=== PATIENT | male | born 1970 | race Caucasian/White ===

== ENCOUNTER → 2016-05-10 | Outpatient (CLI) | payer OTHER ==
[~2016-05-10] MED LIST: ACULAR 3 ML3 M1 OP; METOPROLOL SUCC50 M2 PO; NORVASC5 MG PO; Synthroid,Lev150 MCG PO; ZESTRIL40 MG PO
== END | disposition home or self-care (01) ==
LOC: CT 06:20
DX: D44.10 Neoplasm of uncertain behavior of unspecified adrenal gland (principal); R91.1 Solitary pulmonary nodule; N20.0 Calculus of kidney

== ENCOUNTER → 2019-01-29 | Outpatient (CLI) | payer OTHER | END | disposition home or self-care (01) | LOC: CT 01-21 11:00 | DX: R91.1 Solitary pulmonary nodule (principal) ==

== ENCOUNTER → 2019-12-11 | Outpatient (CLI) | payer OTHER ==
[2019-12-11 11:33] LABS: BASO # 0.1 10*3/uL (0.0-0.1); BASO % 0.7 % (0.0-1.0); EOS # 0.3 10*3/uL (0.0-0.4); EOS % 3.4 % (1.0-4.0); LYMPH # 2.3 10*3/uL (1.3-4.4); LYMPH % 29.3 % (27.0-41.0); MEAN CELL VOLUME 88.5 fl (80.0-94.0); MEAN CORPUSCULAR HGB 29.6 pg (27.0-31.0); MEAN CORPUSCULAR HGB CONC 33.4 g/dl (33.0-37.0); MEAN PLATELET VOLUME 10.2 fl (9.6-12.3); MONO # 0.6 10*3/uL (0.1-1.0); MONO % 7.8 % (3.0-9.0); NEUT # 4.5 10*3/uL (2.3-7.9); NEUT % 58.5 % (47.0-73.0); PLATELET COUNT AUTOMATED 248 10*3/uL (130-400); RED BLOOD COUNT 5.31 10*6/uL (4.50-5.90); RED CELL DISTRI WIDTH 12.4 % (0-14.5); RETICULOCYTE % 1.18 % (0.50-2.50); WHITE BLOOD COUNT 7.7 10*3/uL (4.8-10.8)
[2019-12-11 11:43] LABS: BILIRUBIN Negative (Negative); BLOOD Negative (Negative); CLARITY Clear (Clear); COLOR Yellow (Yellow); GLUCOSE Negative (Negative); KETONE Negative (Negative); LEUKO ESTERASE Negative (Negative); NITRITE Negative (Negative); UROBILINOGEN 0.2 E.U./dl (0.0-1.0)
[2019-12-11 11:51] LABS: BACTERIA TRACE; EPITHELIAL CELLS 0-2; WBC 0-2 wbc/hpf (0-5)
[2019-12-11 11:58] LABS: ALKALINE PHOSPHATASE 72 U/L (45-117); BUN 14 mg/dl (7-24); CHLORIDE 107 mmol/L (98-107); CHOLESTEROL 211 mg/dL (<200); CREATININE 0.81 mg/dL (0.70-1.30); GAMMA GLUTAMYL TRANSPEPTIDASE 15 U/L (15-85); HDL CHOLESTEROL 46 mg/dl (40-60); IRON 75 ug/dL (65-175); LDL CHOLESTEROL 144 mg/dL (9-159); POTASSIUM 4.5 mmol/L (3.5-5.1); SGOT/AST 19 IU/L (3-35); SGPT/ALT 30 U/L (12-78); SODIUM 140 mmol/L (136-145); T3 UPTAKE 30 % (31-39); THYROXINE (T4) TOTAL 11.2 ug/dl (4.5-12.1); TOTAL IRON BINDING CAPACITY 316 ug/dl (250-450); TOTAL PROTEIN 7.7 gm/dL (6.4-8.2); TRIGLYCERIDES 105 mg/dl (<150); VLDL CHOLESTEROL 21 mg/dL (6-40)
== END | disposition home or self-care (01) ==
LOC: LAB 10:57
PROVIDERS: ATTEND Family Medicine
DX: R79.89 Other specified abnormal findings of blood chemistry (principal); R53.83 Other fatigue; E78.5 Hyperlipidemia, unspecified; E55.9 Vitamin D deficiency, unspecified

== ENCOUNTER → 2020-08-11 | Outpatient (CLI) | payer OTHER ==
[2020-08-11 08:45] LABS: BASO % 0.7 % (0.0-1.0); EOS # 0.2 10*3/uL (0.0-0.4); EOS % 3.1 % (1.0-4.0); HEMATOCRIT 44.9 % (42.0-52.0); LYMPH # 2.1 10*3/uL (1.3-4.4); LYMPH % 33.4 % (27.0-41.0); MEAN CORPUSCULAR HGB 30.2 pg (27.0-31.0); MEAN CORPUSCULAR HGB CONC 34.3 g/dl (33.0-37.0); MEAN PLATELET VOLUME 10.6 fl (9.6-12.3); MONO # 0.7 10*3/uL (0.1-1.0); MONO % 11.7 % (3.0-9.0); NEUT # 3.1 10*3/uL (2.3-7.9); NEUT % 50.9 % (47.0-73.0); PLATELET COUNT AUTOMATED 220 10*3/uL (130-400); RED CELL DISTRI WIDTH 12.4 % (0-14.5); RETICULOCYTE % 0.95 % (0.50-2.50); WHITE BLOOD COUNT 6.1 10*3/uL (4.8-10.8)
[2020-08-11 08:46] LABS: BILIRUBIN Negative (Negative); BLOOD Negative (Negative); CLARITY Clear (Clear); COLOR Yellow (Yellow); GLUCOSE Negative (Negative); KETONE Negative (Negative); LEUKO ESTERASE Negative (Negative); NITRITE Negative (Negative); SPECIFIC GRAVITY <= 1.005 (1.001-1.030); UROBILINOGEN 0.2 E.U./dl (0.0-1.0)
[2020-08-11 09:00] LABS: EPITHELIAL CELLS 0-2; RBC 0-2 rbc/hpf (0-2)
[2020-08-11 09:14] LABS: ALBUMIN 3.8 gm/dl (3.1-4.5); ALKALINE PHOSPHATASE 72 U/L (45-117); BUN 16 mg/dl (7-24); CHLORIDE 106 mmol/L (98-107); CHOLESTEROL 211 mg/dL (<200); CREATININE 0.89 mg/dL (0.70-1.30); GAMMA GLUTAMYL TRANSPEPTIDASE 9 U/L (15-85); IRON 61 ug/dL (65-175); LDL CHOLESTEROL 144 mg/dL (9-159); POTASSIUM 4.4 mmol/L (3.5-5.1); SGOT/AST 16 IU/L (3-35); SGPT/ALT 27 U/L (12-78); SODIUM 138 mmol/L (136-145); T3 UPTAKE 33 % (31-39); TOTAL IRON BINDING CAPACITY 323 ug/dl (250-450); TOTAL PROTEIN 7.3 gm/dL (6.4-8.2); TRIGLYCERIDES 143 mg/dl (<150)
[2020-08-11 09:51] LABS: FERRITIN 154.1 ng/mL (22.0-322.0); VITAMIN D, 25-HYDROXY 18.2 ng/mL (30-100)
== END | disposition home or self-care (01) ==
LOC: LAB 02:36
PROVIDERS: ATTEND Family Medicine
DX: E78.5 Hyperlipidemia, unspecified (principal); B55.9 Leishmaniasis, unspecified; R53.83 Other fatigue; R79.89 Other specified abnormal findings of blood chemistry

== ENCOUNTER → 2021-03-01 | Outpatient (CLI) | payer OTHER ==
[2021-03-01 10:29] LABS: BASO # 0.1 10*3/uL (0.0-0.1); BASO % 1.2 % (0.0-1.0); EOS # 0.9 10*3/uL (0.0-0.4); EOS % 12.6 % (1.0-4.0); LYMPH # 1.8 10*3/uL (1.3-4.4); MEAN CELL VOLUME 89.5 fl (80.0-94.0); MEAN CORPUSCULAR HGB 30.4 pg (27.0-31.0); MEAN CORPUSCULAR HGB CONC 33.9 g/dl (33.0-37.0); MEAN PLATELET VOLUME 10.1 fl (9.6-12.3); MONO # 0.6 10*3/uL (0.1-1.0); MONO % 7.6 % (3.0-9.0); NEUT # 3.9 10*3/uL (2.3-7.9); NEUT % 53.2 % (47.0-73.0); PLATELET COUNT AUTOMATED 237 10*3/uL (130-400); RED BLOOD COUNT 5.14 10*6/uL (4.50-5.90); RED CELL DISTRI WIDTH 12.7 % (0-14.5); RETICULOCYTE % 1.32 % (0.50-2.50); WHITE BLOOD COUNT 7.4 10*3/uL (4.8-10.8)
[2021-03-01 10:37] LABS: BILIRUBIN Negative (Negative); BLOOD Negative (Negative); CLARITY Clear (Clear); COLOR Yellow (Yellow); GLUCOSE Negative (Negative); KETONE Negative (Negative); LEUKO ESTERASE Negative (Negative); NITRITE Negative (Negative); PH 5.5 (4.5-8.0); SPECIFIC GRAVITY 1.015 (1.001-1.030); UROBILINOGEN 0.2 E.U./dl (0.0-1.0)
[2021-03-01 10:47] LABS: ALBUMIN 3.7 gm/dl (3.1-4.5); BUN 13 mg/dl (7-24); CHLORIDE 107 mmol/L (98-107); CHOLESTEROL 210 mg/dL (<200); CREATININE 0.94 mg/dL (0.70-1.30); GAMMA GLUTAMYL TRANSPEPTIDASE 19 U/L (15-85); IRON 83 ug/dL (65-175); POTASSIUM 4.4 mmol/L (3.5-5.1); SGOT/AST 18 IU/L (3-35); SGPT/ALT 31 U/L (12-78); SODIUM 141 mmol/L (136-145); T3 UPTAKE 33 % (31-39); THYROXINE (T4) TOTAL 11.9 ug/dl (4.5-12.1); TOTAL IRON BINDING CAPACITY 313 ug/dl (250-450); TRIGLYCERIDES 121 mg/dl (<150)
[2021-03-01 10:56] LABS: ALKALINE PHOSPHATASE 72 U/L (45-117); LDL CHOLESTEROL 139 mg/dL (9-159)
[2021-03-01 10:59] LABS: MUCOUS 2+
[2021-03-01 11:01] LABS: WBC 0-2 wbc/hpf (0-5)
[2021-03-01 11:02] LABS: BACTERIA 2+; HYALINE CAST 0-2; RBC 0-2 rbc/hpf (0-2)
[2021-03-01 11:26] LABS: FERRITIN 144.6 ng/mL (22.0-322.0); VITAMIN D, 25-HYDROXY 25.7 ng/mL (30-100)
== END ==
LOC: LAB 01:12
PROVIDERS: ATTEND Family Medicine
DX: E55.9 Vitamin D deficiency, unspecified (principal); R79.89 Other specified abnormal findings of blood chemistry

== ENCOUNTER 2021-04-20 15:19 | Emergency (ER) | payer OTHER ==
[2021-04-20] MEDS ORDERED: TOBRAMYCIN 5 ML5 M2 OPH (16:49)
== END 2021-04-20 17:24 | disposition home or self-care (01) ==
LOC: ED 15:19
DX: T15.82XA Foreign body in other and multiple parts of external eye, left eye, initial encounter (principal); Z79.899 Other long term (current) drug therapy; X58.XXXA Exposure to other specified factors, initial encounter; Y93.89 Activity, other specified; Y92.89 Other specified places as the place of occurrence of the external cause; Y99.9 Unspecified external cause status

== ENCOUNTER → 2021-05-12 | Outpatient (CLI) | payer OTHER ==
[~2021-05-12] MED LIST changes: +COZAAR25 M1 PO; +NORVASC10 MG PO; +Synthroid,Lev125 MCG PO; +TOBRAMYCIN 5 ML5 M2 OPH
[2021-05-12 09:13] LABS: BASO # 0.1 10*3/uL (0.0-0.1); BASO % 1.2 % (0.0-1.0); BILIRUBIN Negative (Negative); BLOOD Trace-Intact (Negative); CLARITY Clear (Clear); COLOR Dark Yellow (Yellow); EOS # 0.6 10*3/uL (0.0-0.4); EOS % 6.8 % (1.0-4.0); GLUCOSE Negative (Negative); HEMATOCRIT 48.6 % (42.0-52.0); KETONE Trace (Negative); LEUKO ESTERASE Trace (Negative); LYMPH # 2.1 10*3/uL (1.3-4.4); LYMPH % 25.5 % (27.0-41.0); MEAN CELL VOLUME 87.7 fl (80.0-94.0); MEAN CORPUSCULAR HGB 30.1 pg (27.0-31.0); MEAN CORPUSCULAR HGB CONC 34.4 g/dl (33.0-37.0); MONO # 0.6 10*3/uL (0.1-1.0); MONO % 7.2 % (3.0-9.0); NEUT # 4.7 10*3/uL (2.3-7.9); NEUT % 58.9 % (47.0-73.0); NITRITE Negative (Negative); PH 5.5 (4.5-8.0); PLATELET COUNT AUTOMATED 263 10*3/uL (130-400); RED BLOOD COUNT 5.54 10*6/uL (4.50-5.90); RED CELL DISTRI WIDTH 12.3 % (0-14.5); RETICULOCYTE % 1.27 % (0.50-2.50)
[2021-05-12 09:21] LABS: EPITHELIAL CELLS 0-2; MUCOUS 4+
[2021-05-12 09:30] LABS: ALKALINE PHOSPHATASE 69 U/L (45-117); BUN 16 mg/dl (7-24); CHLORIDE 106 mmol/L (98-107); CHOLESTEROL 220 mg/dL (<200); CREATININE 0.95 mg/dL (0.70-1.30); GAMMA GLUTAMYL TRANSPEPTIDASE 13 U/L (15-85); IRON 97 ug/dL (65-175); LDL CHOLESTEROL 152 mg/dL (9-159); POTASSIUM 4.2 mmol/L (3.5-5.1); SGOT/AST 15 IU/L (3-35); SGPT/ALT 29 U/L (12-78); SODIUM 138 mmol/L (136-145); T3 UPTAKE 30 % (31-39); THYROXINE (T4) TOTAL 11.8 ug/dl (4.5-12.1); TOTAL IRON BINDING CAPACITY 322 ug/dl (250-450); TOTAL PROTEIN 7.6 gm/dL (6.4-8.2); TRIGLYCERIDES 145 mg/dl (<150)
[2021-05-12 10:43] LABS: FERRITIN 164.2 ng/mL (22.0-322.0); VITAMIN D, 25-HYDROXY 25.7 ng/mL (30-100)
== END | disposition home or self-care (01) ==
LOC: LAB 00:31 → CARD 00:31
PROVIDERS: Family Medicine; ATTEND Internal Medicine
DX: R79.89 Other specified abnormal findings of blood chemistry (principal); R53.83 Other fatigue; E55.9 Vitamin D deficiency, unspecified; E78.5 Hyperlipidemia, unspecified; R07.9 Chest pain, unspecified

== ENCOUNTER → 2021-05-22 | Outpatient (CLI) | payer OTHER | END | disposition home or self-care (01) | LOC: LAB 07:17 | PROVIDERS: ATTEND Internal Medicine | DX: I10 Essential (primary) hypertension (principal) ==

== ENCOUNTER → 2022-03-16 | Outpatient (CLI) | payer OTHER ==
[2022-03-16 08:27] LABS: BASO # 0.1 10*3/uL (0.0-0.1); BASO % 1.1 % (0.0-1.0); BILIRUBIN Negative (Negative); BLOOD Negative (Negative); CLARITY Clear (Clear); COLOR Yellow (Yellow); EOS # 0.3 10*3/uL (0.0-0.4); EOS % 3.8 % (1.0-4.0); GLUCOSE Negative (Negative); HEMATOCRIT 47.6 % (42.0-52.0); KETONE Negative (Negative); LEUKO ESTERASE Negative (Negative); LYMPH # 1.9 10*3/uL (1.3-4.4); LYMPH % 26.2 % (27.0-41.0); MEAN CELL VOLUME 89.5 fl (80.0-94.0); MEAN CORPUSCULAR HGB 30.3 pg (27.0-31.0); MEAN CORPUSCULAR HGB CONC 33.8 g/dl (33.0-37.0); MEAN PLATELET VOLUME 10.2 fl (9.6-12.3); MONO # 0.8 10*3/uL (0.1-1.0); MONO % 10.7 % (3.0-9.0); NEUT # 4.3 10*3/uL (2.3-7.9); NEUT % 57.9 % (47.0-73.0); NITRITE Negative (Negative); PLATELET COUNT AUTOMATED 243 10*3/uL (130-400); RED BLOOD COUNT 5.32 10*6/uL (4.50-5.90); RED CELL DISTRI WIDTH 12.5 % (0-14.5); RETICULOCYTE % 1.36 % (0.50-2.50); SPECIFIC GRAVITY <= 1.005 (1.001-1.030); UROBILINOGEN 0.2 E.U./dl (0.0-1.0); WHITE BLOOD COUNT 7.4 10*3/uL (4.8-10.8)
[2022-03-16 08:43] LABS: ALKALINE PHOSPHATASE 74 U/L (46-116); BUN 13 mg/dl (9-23); CHLORIDE 101 mmol/L (98-107); CHOLESTEROL 205 mg/dL (<200); GAMMA GLUTAMYL TRANSPEPTIDASE 15 U/L (0-73); LDL CHOLESTEROL 136 mg/dL (9-159); POTASSIUM 4.3 mmol/L (3.4-5.1); SGPT/ALT 26 U/L (10-49); TOTAL PROTEIN 7.1 gm/dL (6.0-8.0); TRIGLYCERIDES 137 mg/dl (<150)
[2022-03-16 09:04] LABS: EPITHELIAL CELLS 0-2; RBC 0-2 rbc/hpf (0-2)
[2022-03-16 09:24] LABS: VITAMIN D, 25-HYDROXY 35.7 ng/mL (30-100)
[2022-03-16 10:10] LABS: THYROID STIM HORMONE (HS) 5.642 uIU/ml (0.550-4.780)
== END | disposition home or self-care (01) ==
LOC: LAB 07:43
PROVIDERS: ATTEND Family Medicine
DX: E78.5 Hyperlipidemia, unspecified (principal); E55.9 Vitamin D deficiency, unspecified; R79.89 Other specified abnormal findings of blood chemistry; R53.83 Other fatigue; R74.8 Abnormal levels of other serum enzymes

== ENCOUNTER → 2022-05-22 | Outpatient (CLI) | payer OTHER | END | disposition home or self-care (01) | LOC: US 04-27 14:00 → CT 05-19 09:00 | PROVIDERS: ATTEND Internal Medicine Critical Care Medicine | DX: E04.2 Nontoxic multinodular goiter (principal); R91.8 Other nonspecific abnormal finding of lung field; I77.810 Thoracic aortic ectasia; J84.10 Pulmonary fibrosis, unspecified ==

== ENCOUNTER → 2023-07-26 | Outpatient (CLI) | payer OTHER ==
[2023-07-26 11:26] LABS: BASO # 0.1 10*3/uL (0.0-0.1); BASO % 0.7 % (0.0-1.0); EOS # 0.3 10*3/uL (0.0-0.4); EOS % 3.3 % (1.0-4.0); HEMATOCRIT 44.4 % (42.0-52.0); LYMPH # 2.1 10*3/uL (1.3-4.4); LYMPH % 27.4 % (27.0-41.0); MEAN CELL VOLUME 87.6 fl (80.0-94.0); MEAN CORPUSCULAR HGB CONC 34.2 g/dl (33.0-37.0); MEAN PLATELET VOLUME 10.1 fl (9.6-12.3); MONO # 0.8 10*3/uL (0.1-1.0); NEUT # 4.4 10*3/uL (2.3-7.9); NEUT % 58.3 % (47.0-73.0); PLATELET COUNT AUTOMATED 236 10*3/uL (130-400); RED BLOOD COUNT 5.07 10*6/uL (4.50-5.90); RED CELL DISTRI WIDTH 12.6 % (0-14.5); RETICULOCYTE % 1.23 % (0.50-2.50); WHITE BLOOD COUNT 7.6 10*3/uL (4.8-10.8)
[2023-07-26 11:38] LABS: BILIRUBIN Negative (Negative); BLOOD Negative (Negative); CLARITY Clear (Clear); COLOR Yellow (Yellow); GLUCOSE Negative (Negative); KETONE Negative (Negative); LEUKO ESTERASE Negative (Negative); NITRITE Negative (Negative); SPECIFIC GRAVITY 1.015 (1.001-1.030); UROBILINOGEN 0.2 E.U./dl (0.0-1.0)
[2023-07-26 12:03] LABS: ALKALINE PHOSPHATASE 62 U/L (46-116); BUN 15 mg/dl (9-23); CHLORIDE 105 mmol/L (98-107); CHOLESTEROL 187 mg/dL (<200); GAMMA GLUTAMYL TRANSPEPTIDASE 20 U/L (0-73); LDL CHOLESTEROL 132 mg/dL (9-159); POTASSIUM 4.4 mmol/L (3.4-5.1); SGPT/ALT 21 U/L (5-49); T3 UPTAKE 26.3 % (22.4-36.7); THYROXINE (T4) TOTAL 11.1 ug/dl (4.5-10.9); TRIGLYCERIDES 90 mg/dl (<150)
[2023-07-26 12:05] LABS: VITAMIN D, 25-HYDROXY 41.9 ng/mL (30-100)
[2023-07-26 13:57] LABS: BACTERIA TRACE
== END ==
LOC: LAB 11:03
PROVIDERS: ATTEND Family Medicine
DX: R79.89 Other specified abnormal findings of blood chemistry (principal); R53.83 Other fatigue; E78.5 Hyperlipidemia, unspecified; R74.8 Abnormal levels of other serum enzymes; E55.9 Vitamin D deficiency, unspecified

== ENCOUNTER → 2024-05-22 | Outpatient (CLI) | payer OTHER ==
[2024-05-22 17:24] LABS: BILIRUBIN Negative (Negative); BLOOD Negative (Negative); CLARITY Clear (Clear); COLOR Yellow (Yellow); GLUCOSE Negative (Negative); KETONE Negative (Negative); LEUKO ESTERASE Negative (Negative); NITRITE Negative (Negative); SPECIFIC GRAVITY <= 1.005 (1.001-1.030); UROBILINOGEN 0.2 E.U./dl (0.0-1.0)
[2024-05-22 17:27] LABS: BASO # 0.1 10*3/uL (0.0-0.1); BASO % 0.6 % (0.0-1.0); EOS # 0.3 10*3/uL (0.0-0.4); EOS % 3.2 % (1.0-4.0); MEAN CELL VOLUME 88.3 fl (80.0-94.0); MEAN CORPUSCULAR HGB 29.6 pg (27.0-31.0); MEAN CORPUSCULAR HGB CONC 33.5 g/dl (33.0-37.0); MEAN PLATELET VOLUME 10.1 fl (9.6-12.3); MONO # 0.8 10*3/uL (0.1-1.0); MONO % 9.5 % (3.0-9.0); NEUT # 4.9 10*3/uL (2.3-7.9); NEUT % 58.1 % (47.0-73.0); PLATELET COUNT AUTOMATED 230 10*3/uL (130-400); RED BLOOD COUNT 5.21 10*6/uL (4.50-5.90); RED CELL DISTRI WIDTH 12.4 % (0-14.5); RETICULOCYTE % 1.02 % (0.50-2.50); WHITE BLOOD COUNT 8.4 10*3/uL (4.8-10.8)
[2024-05-22 17:36] LABS: RBC 0-2 rbc/hpf (0-2); WBC 0-2 wbc/hpf (0-5)
[2024-05-22 17:50] LABS: ALKALINE PHOSPHATASE 58 U/L (46-116); BUN 16 mg/dl (9-23); CHLORIDE 104 mmol/L (98-107); CHOLESTEROL 191 mg/dL (<200); GAMMA GLUTAMYL TRANSPEPTIDASE 18 U/L (0-73); LDL CHOLESTEROL 125 mg/dL (9-159); SGPT/ALT 22 U/L (5-49); T3 UPTAKE 24.3 % (22.4-36.7); THYROXINE (T4) TOTAL 11.4 ug/dl (4.5-10.9); TOTAL PROTEIN 7.3 gm/dL (6.0-8.0); TRIGLYCERIDES 124 mg/dl (<150)
== END | disposition home or self-care (01) ==
LOC: LAB 16:50
PROVIDERS: ATTEND Family Medicine
DX: R79.89 Other specified abnormal findings of blood chemistry (principal); R53.83 Other fatigue; E78.5 Hyperlipidemia, unspecified; E55.9 Vitamin D deficiency, unspecified